=== PATIENT | male | born 1960 | race Caucasian/White ===

== ENCOUNTER 2018-02-03 20:29 | Emergency (ER) | payer OTHER ==
[~2018-02-03] VITALS: Ht 182.9 cm; Wt 99.0 kg
[2018-02-03 20:33] VITALS: BP 145/101
[2018-02-03] MEDS ORDERED: FLUC100T PO (21:38)
[2018-02-03] MEDS ORDERED: SULF1TAB49 PO (21:38)
== END 2018-02-03 21:46 | disposition home or self-care (01) ==
LOC: ER 20:30
DX: L08.9 Local infection of the skin and subcutaneous tissue, unspecified (principal); Z79.899 Other long term (current) drug therapy
CPT/HCPCS: 82948; 99283

== ENCOUNTER 2018-02-06 20:11 | Emergency (ER) | payer MEDICAID, OTHER ==
[~2018-02-06] VITALS: Ht 182.9 cm; Wt 97.2 kg
[~2018-02-06 20:11] MED LIST: FLUC100T PO; SULF1TAB49 PO
[2018-02-06] MEDS ORDERED: cephalexin 500mg capsule PO ONE (20:35)
[2018-02-06] MEDS ORDERED: CEPH-572 PO (20:37)
[2018-02-06] MEDS ORDERED: cephalexin 250mg capsule PO ONE (20:40)
[2018-02-06 20:48] VITALS: BP 124/80
== END 2018-02-06 20:50 | disposition home or self-care (01) ==
LOC: ER 20:11
DX: L03.116 Cellulitis of left lower limb (principal); R51 Headache; R68.83 Chills (without fever); F17.210 Nicotine dependence, cigarettes, uncomplicated; Z88.0 Allergy status to penicillin; Z79.899 Other long term (current) drug therapy
CPT/HCPCS: 99283